=== PATIENT | male | born 2000 | race African-American/Black ===

== ENCOUNTER 2021-11-11 13:02 | Emergency (ER) | payer OTHER, SELFPAY ==
--- NOTE | ~2021-11-11 | CT_ITS ---
EXAMINATION: CT CHEST WITHOUT CONTRAST CLINICAL INFORMATION: Pulmonary nodules COMPARISON: Chest x-ray earlier the same day TECHNIQUE: Multidetector volumetric CT imaging of the chest was done. Axial MIP volume rendering provided. Sagittal and coronal reformatted images were obtained. This CT examination was performed using dose optimization techniques as appropriate, variously including the following: *Automated exposure control *Adjustment of mA and/or kV according to patient size (this includes techniques or standardized protocols for targeted exams where dose is matched to indication/reason for exam; i.e. extremities or head) *Use of iterative reconstruction technique DLP: 378 mGy-cm FINDINGS: FOIL SPINNER: Unremarkable LUNGS: There is a 2 mm peripheral or subpleural left upper lobe nodule adjacent to the fissure axial image 26 series 5. There is a 3 mm peripheral or subpleural right upper lobe nodule axial image 152 series 5. Represent small subpleural lymph nodes. The lungs are otherwise clear. No endobronchial or endotracheal lesion is seen. MEDIASTINUM: The mediastinum is normal. PLEURA: There is no pleural effusion. No pleural mass or thickening. AXILLA: No chest wall mass or enlarged axillary lymph nodes. UPPER ABDOMEN: Unremarkable. OSSEOUS STRUCTURES: There is a small amount of air overlying the sternomanubrial and left clavicular manubrial joints. CT/CT chest wo con IMPRESSION: 2 small bilateral upper lobe nodules largest measuring 3 mm in the right upper lobe. Follow-up represent subpleural lymph nodes. According to the UPDATED 2017 Fleischner Society recommendations, the advised follow-up imaging for less than 6 mm nodule: Low risk, no chest CT follow-up and high risk, optional chest follow-up in one Fleischner guidelines were followed.
--- NOTE | ~2021-11-11 | XR_ITS ---
EXAMINATION: XR CHEST CLINICAL INFORMATION: SOB and dizziness. COMPARISON: None TECHNIQUE: 2 views of the chest were obtained. FINDINGS: The lungs are well-expanded without acute process. There are 2 soft tissue nodules measuring 9 mm in right lung apex and a 9 mm right upper lobe. No additional nodules seen. The heart size and pulmonary vascularity is normal. No gross bony abnormality seen. XR/XR chest 2V IMPRESSION: 2 nodules right upper lobe. Recommend CT chest.
[2021-11-11 13:32] VITALS: BP 150/81; PULSE 71; RESP 19; TEMP 37.2; O2SAT 96; BMI 29.3
[2021-11-11] MEDS: Albuterol Sulfate 90 MCG 8 GM INHALER 4 PUFF INHALE (13:54)
--- NOTE | 2021-11-11 13:58 | PC.NURSE ---
moved to pivot room and albuterol inhaler given
[2021-11-11 14:12] LABS: COVID-19 Test Negative (Negative)
--- NOTE | 2021-11-11 14:42 | ED.URI ---
HPI - URI/Sore Throat General Chief Complaint: Upper Respiratory Symptoms Stated Complaint: diff breathing Time Seen by Provider: 11/11/21 13:45 Source: patient Mode of arrival: ambulatory Limitations: no limitations History of Present Illness HPI Narrative: This is a 21-year-old male past medical history significant for asthma (well controlled), resting tremor presenting to the emergency department with shortness of breath, cough, malaise, chills and diarrhea since this morning. Patient tells me that he decided to come in today because he felt very short of breath particularly when he was showering. He tells me he has an asthmatic, asthma is well controlled, he does not have an inhaler at home as he has not needed it for years. He reports a dry intermittent cough. He also tells me he had bouts of diarrhea. He is vaccinated with Pfizer x2. No recent sick contacts. MD elicited complaint: cough Onset (ago): day(s) (1) Consistency: intermittent Severity: moderate Able to tolerate fluids by mouth: Yes Relieving factors: nothing Associated symptoms: chills, cough and diarrhea Treatments prior to arrival: none Related Data Previous Rx's Medication Instructions Recorded albuterol sulfate 90 mcg/actuation 2 inh INHALATION Q4-6H PRN #1 ea 11/11/21 breath activated powder inhaler benzonatate 100 mg capsule 100 mg PO BID PRN #20 cap 11/11/21 prednisone 20 mg tablet 40 mg PO DAILY 5 Days #10 tab 11/11/21 Allergies Allergy/AdvReac Type Severity Reaction Status Date / Time shellfish derived Allergy Unknown Verified 11/11/21 13:38 Review of Systems Review of Systems: Constitutional : No Fever, positive Chills, positive fatigue, positive Malaise ENT/Mouth : No sore throat, No runny nose Eyes: No Discharge Cardiovascular : No Chest Pain, positive SOB Respiratory : positive Cough, No Sputum Gastrointestinal : No Nausea, No Vomiting, No Diarrhea Genitourinary : No Dysuria, No Urinary Frequency Musculoskeletal : positive Myalgia Skin : No rash Neuro : No Headache Yes all other systems are reviewed and are negative [facility] Past Medical History Attestation statement: The following information was validated with the patient. Source: old records reviewed and nursing notes reviewed Medical History Asthma Social History Social History Advance Directives: No Advance Directives Information Provided: Yes Physical Exam Vital Signs: Vital Signs: Last Vital Signs Temp 99 F 11/11/21 13:32 Pulse 71 11/11/21 15:20 Resp 19 11/11/21 13:32 BP 150/81 H 11/11/21 13:32 Pulse Ox 96 11/11/21 13:32 BMI result Body Mass Index 29.3 VSS Appearance: Alert.? Oriented X3.? No acute distress.? Head: Normocephalic, atraumatic, no step-offs or deformities Eyes: Pupils equal, round and reactive to light.? Neck: Normal inspection.? Neck supple.? CVS: Normal heart rate and rhythm.? Pulses normal.? Respiratory: No respiratory distress.? + expiratory wheezes?throughout Abdomen: Soft and nontender.? Skin: Skin warm and dry.? Normal skin color.? Normal skin turgor.? Extremities: No lower extremity edema.? No calf ttp. 5/5 strength to bilateral upper and lower extremities Neuro: Oriented X 3.? No motor deficit.? No sensory deficit. Course Reevaluation(s) Reevaluation #1: COVID negative. Xray shows two upper lobe nodules. CT will be ordered. Time: 14:52 Reevaluation #2: Patient reports significant improvement after DuoNeb. CT scan shows 2 small bilateral upper lobe nodules, largest measuring 3 mm. I have advised patient to follow-up with his PCP. Upon re-evaluation patient is still noted to have faint wheezes throughout however improved from initial. Time: 15:30 Reevaluation #3: Significant improvement after 2nd DuoNeb, patient is saturating 97% on room air. Unlikely that this is a PE this is likely asthma with superimposed bronchitis. Patient will be treated for bronchitis. I have advised him to return with new or worsening symptoms. Today's COVID-19 test is negative I advised him to retest in 2-4 days Comfortable discharge home. Time: 17:22 MDM - URI/Sore Throat MDM Narrative Medical decision making narrative: [id number] 21-year-old male presents with COVID like symptoms since this morning. Vaccinated Pfizer x3. No sick contacts. No chest pain. Reports shortness of breath particularly with exertion. Physical examination significant for wheezing, expiratory in nature throughout. Regular rate and rhythm. Abdomen soft nontender nondistended. Plan at this time is to obtain a chest x-ray, COVID test. I will also order a DuoNeb for this patient. Medical Records Attestation: I reviewed the patient's medical records. Lab Data Attestation: I reviewed the patient's lab results. Labs: Lab Results 11/11/21 Range/Units 13:41 COVID-19 (ERIK) Negative (Negative) COVID-19 Clin Com See Note Imaging Data Chest CT: Attestation: I personally reviewed and interpreted this imaging study as follows: Radiologist's impression: CT/CT chest wo con IMPRESSION: 2 small bilateral upper lobe nodules largest measuring 3 mm in the right upper lobe. Follow-up represent subpleural lymph nodes. According to the UPDATED 2017 Fleischner Society recommendations, the advised follow-up imaging for less than 6 mm nodule: Low risk, no chest CT follow-up and high risk, optional chest follow-up in one Fleischner guidelines were followed. Critical Care Time Critical Care Time Critical Care Time: No Discharge Plan Discharge Clinical Impression: Bronchitis, Asthma Patient Disposition: Home, Self-Care Instructions: Acute Bronchitis (ED), How to Use a Dry-Powder Inhaler (ED) Additional Instructions: Take your medications as prescribed. If you were prescribed antibiotics today, it is important that you take your medication to their entirety, do not skip any doses, do not finish them early. Follow-up with your primary care provider this week. Return to the emergency department with new or worsening symptoms. In case of emergency call 911 Although your COVID test came back negative, you should probably retest in 2-4 days as your symptoms are consistent with COVID-19. For now please a slight for 5 days. Please use the inhaler as instructed. Return to the emergency department with new or worsening symptoms such as chest pain, shortness of breath. Prescriptions: New prednisone 20 mg tablet 40 mg PO DAILY 5 Days Qty: 10 RF: 0 benzonatate 100 mg capsule 100 mg PO BID PRN (Reason: cough) Qty: 20 RF: 0 albuterol sulfate 90 mcg/actuation aerosol powdr breath activated 2 inh inhalation Q4-6H PRN (Reason: shortness of breath or wheezing) Qty: 1 RF: 0 Referrals: Physician,Unknown J [Physician] - 2 days Stand Alone Forms: Work/School Release
[2021-11-11 15:20] VITALS: PULSE 71; O2SAT 96
[2021-11-11] MEDS: Albuterol/Iprat 2.5/0.5MG 3 ML AMPUL.NEB INHALE ×2 (15:20→17:13)
[2021-11-11] MEDS: dexAMETHasone 6 MG TABLET PO (16:50)
== END 2021-11-11 17:44 | disposition home or self-care (01) ==
LOC: HO.ED 15:09
PROVIDERS: Emergency Provider Emergency Medicine; PCP Internal Medicine
DX: J40 Bronchitis, not specified as acute or chronic (principal); R06.02 Shortness of breath; R05.9 Cough, unspecified; Z20.822 Contact with and (suspected) exposure to COVID-19; Z79.899 Other long term (current) drug therapy
CPT/HCPCS: 71046; 71250; 87635; 94640; 99283; 99285; J8540

== ENCOUNTER 2021-12-09 21:10 | Emergency (ER) | payer OTHER, SELFPAY ==
--- NOTE | ~2021-12-09 | XR_ITS ---
EXAMINATION: XR CHEST CLINICAL INFORMATION: Shortness of breath. COMPARISON: CT chest dated from 11/11/2021. Chest radiograph dated from 11/11/2021. TECHNIQUE: AP view of the chest was obtained. FINDINGS: Normal appearance of the cardiomediastinal silhouette. EKG wires overlie the chest. The lungs are adequately expanded without focal airspace opacities, pleural effusions or pneumothorax. Sub-3 mm pulmonary nodules are best visualized on recent CT chest from 11/11/2021. No acute osseous abnormalities. XR/XR chest 1V IMPRESSION: No acute cardiopulmonary findings.
[2021-12-09 21:20] VITALS: BP 161/90; PULSE 80; RESP 25; TEMP 37.2; O2SAT 96; BMI 28.3
--- NOTE | 2021-12-09 21:22 | ED.ASTHMA ---
HPI - Asthma General Chief Complaint: Upper Respiratory Symptoms Stated Complaint: Asthma Time Seen by Provider: 12/09/21 21:19 Source: patient Mode of arrival: EMS History of Present Illness HPI Narrative: 21-year-old male with history of asthma and has been vaccinated for COVID-19 presents via EMS for acute asthma exacerbation with difficulty breathing but denies any recent fever, chills, GI or symptoms. Patient states he has a use medication ?in years?. But states approximately 1 hour prior to arrival the began developing increasing shortness of breath. Patient denies any use of cigarettes or marijuana. Related Data Previous Rx's Medication Instructions Recorded albuterol sulfate 90 mcg/actuation 2 inh INHALATION Q4-6H PRN #1 ea 11/11/21 breath activated powder inhaler benzonatate 100 mg capsule 100 mg PO BID PRN #20 cap 11/11/21 prednisone 20 mg tablet 40 mg PO DAILY 5 Days #10 tab 11/11/21 prednisone 50 mg tablet 50 mg PO DAILY 4 Days #4 tab 12/10/21 Allergies Allergy/AdvReac Type Severity Reaction Status Date / Time shellfish derived Allergy Unknown Verified 11/11/21 13:38 Review of Systems Review of Systems: Pertinent positives and negatives as stated in HPI 10 point review of systems is otherwise negative. PMFSH Past Medical History Source: nursing notes reviewed Medical History Asthma Social History Social History Advance Directives: No Advance Directives Information Provided: No Physical Exam Vital Signs: Vital Signs: Last Vital Signs Temp 98.3 F 12/10/21 00:06 Pulse 68 12/10/21 00:06 Resp 20 12/10/21 00:06 BP 127/69 12/10/21 00:06 Pulse Ox 95 12/10/21 00:06 BMI result Body Mass Index 28.3 VITAL SIGNS: Reviewed. GENERAL: Well developed, well nourished, in no acute distress. HEAD: Normocephalic/atraumatic EYES: PERRLA, EOMI OROPHARYNX: no oral lesions noted, posterior pharynx clear LUNGS: Decreased breath sounds bilaterally with expiratory wheeze, tachypnea is present with increased work of breathing. SpO2<96> CARDIOVASCULAR: Regular rate and rhythm without noted murmurs ABDOMEN: Soft, non-tender, non-distended with bowel sounds SKIN: Inspection of the skin reveals no rashes NEUROLOGIC: Alert and oriented x 4. Course Course Course Narrative: 21-year-old male with history and clinical presentation most consistent with acute asthma exacerbation. Patient received 3-10 mg albuterol hour long treatments, Solu-Medrol, magnesium, and although he still has some mild expiratory wheezing he is no longer tachypneic and has 97% on room air. Chest x-ray is without acute findings and patient was provided with the Ventolin inhaler and will go home with a short course of prednisone. MDM - Asthma Lab Data Labs: Lab Results 12/09/21 Range/Units 22:20 COVID-19 (ERIK) Negative (Negative) COVID-19 Clin Com See Note Discharge Plan Discharge Clinical Impression: Asthma exacerbation Patient Disposition: Home, Self-Care Instructions: Asthma (ED) Additional Instructions: 1. You need to follow-up with the primary care provider for further outpatient management of your asthma. 2. Over the next 24 hours you need to continue to use the inhaler, 2 puffs, every 4-6 hours to help resolve your symptoms. Return to the ER for worsening symptoms. Prescriptions: New prednisone 50 mg tablet 50 mg PO DAILY 4 Days Qty: 4 0RF No Action prednisone 20 mg tablet 40 mg PO DAILY 5 Days Qty: 10 0RF benzonatate 100 mg capsule 100 mg PO BID PRN (Reason: cough) Qty: 20 0RF albuterol sulfate 90 mcg/actuation aerosol powdr breath activated 2 inh inhalation Q4-6H PRN (Reason: shortness of breath or wheezing) Qty: 1 0RF Referrals: Bertha Smith MD [Primary Care Provider] - 2 days
[2021-12-09 21:30] VITALS: PULSE 70
[2021-12-09] MEDS: Albuterol Sulfate (0.083%) 2.5 MG/3 ML VIAL.NEB 10 MG INHALE ×3 (21:31→22:49)
[2021-12-09 21:32] VITALS: PULSE 79; RESP 18; O2SAT 96
[2021-12-09] MEDS: methylPREDNISolone Sod Succ 125 MG/2 ML VIAL IVPUSH (21:35)
[2021-12-09 22:00] VITALS: BP 120/73; PULSE 69; RESP 16; TEMP 37.1; O2SAT 99
[2021-12-09 22:41] LABS: COVID-19 Test Negative (Negative)
[2021-12-09 23:05] VITALS: O2SAT 97
--- NOTE | 2021-12-09 23:07 | PC.NURSE ---
patient in no distress at this time. patient reports feeling improved, wheezing improved. patient jittery at this time, but denies any needs
[2021-12-09] MEDS: Magnesium Sulfate/H2O 2 GM/50 ML PIGGYBACK IV (23:49)
--- NOTE | 2021-12-09 23:57 | PC.NURSE ---
Assumed care of pt at 2300. Pt resting and in NAD, respirations even and non-labored, vitals as charted. Attached to monitor technician and pulse ox. Stable on room air. Mag infusing at this time. Dispo TBD
[2021-12-10 00:06] VITALS: BP 127/69; PULSE 68; RESP 20; TEMP 36.8; O2SAT 95
[2021-12-10] MEDS: Albuterol Sulfate 90 MCG 8 GM INHALER 4 PUFF INHALE (00:32)
== END 2021-12-10 01:05 | disposition home or self-care (01) ==
PROVIDERS: Emergency Provider Student in an Organized Health Care Education/Training Program; PCP Internal Medicine
DX: J45.901 Unspecified asthma with (acute) exacerbation (principal); Z20.822 Contact with and (suspected) exposure to COVID-19
CPT/HCPCS: 71045; 87635; 94640; 94644; 96365; 96366; 96375; 99285; J2930; J3475